=== PATIENT | male | born 1960 | race Caucasian/White ===

== ENCOUNTER 2024-02-20 06:38 | Day surgery (SDC) | payer MEDICARE, BC ==
[~2024-02-20] VITALS: Ht 180.3 cm; Wt 106.6 kg
[~2024-02-20 06:38] MED LIST: ASPI81TA26 PO; CALC600T60 PO; CALCIUM CITRATE PO; FENO200C24 PO; FLUO40CA PO; MULT1TAB8 PO; NS 1,000 ML IV ONE; SIMV20TA22 PO; SM CPOW PO; VITA100093 PO; VITA200038 PO; [UNRECOGNIZED DRUG - CODE] PO; prevagen PO
[2024-02-20] MEDS ORDERED: LIDOCAINE 2% 100MG/5ML SDV (FOR ANES.) As Ordered ONE (07:38)
[2024-02-20] MEDS ORDERED: propofoL 200 MG/20 ML VIAL As Ordered ONE (07:38)
[2024-02-20 08:27] VITALS: TEMP 96.8
[2024-02-20 08:45] VITALS: BP 104/61; O2SAT 98
== END 2024-02-20 08:50 | disposition home or self-care (01) ==
LOC: M OPP 06:38
PROVIDERS: ATTEND Internal Medicine Gastroenterology
DX: D12.0 Benign neoplasm of cecum (principal); K63.5 Polyp of colon; K64.0 First degree hemorrhoids; K57.30 Diverticulosis of large intestine without perforation or abscess without bleeding; R19.4 Change in bowel habit; G47.9 Sleep disorder, unspecified; Z79.899 Other long term (current) drug therapy